=== PATIENT | female | born 1930 | race Caucasian/White ===

== ENCOUNTER 2018-03-23 17:18 | Observation (INO) | payer OTHER, MEDICARE ==
[2018-03-23 18:07] LABS: Protime INR 1.14
[2018-03-23 18:14] LABS: Absolute Lymphocytes (CBC) 1.7 K/uL (0.7-4.9); Absolute Monocytes 0.5 K/uL (0.1-1.3); Absolute Neutrophil 4.6 K/uL (1.8-8.0); Basophils % 0.7 % (0-1.3); Eosinophils % 2.4 % (0-4.4); Lymphocytes % 23.9 % (15.3-44.8); MCH 28.5 pg (27.0-35.0); MCV 87.9 fL (80-100); MPV 9.5 fL (7.6-11.3); Monocytes % 6.9 % (3.3-12.3); RBC Red Blood Cell Count 4.43 M/uL (3.86-4.86)
[2018-03-23 18:25] LABS: ALT/SGPT 12 U/L (12-78); AST/SGOT 14 U/L (15-37); Albumin 2.2 g/dL (3.4-5.0); Alkaline Phosphatase 73 U/L (45-117); BUN Blood Urea Nitrogen 9 mg/dL (7-18); Bicarbonate 33 mmol/L (21-32); Bilirubin Direct 0.2 mg/dL (0-0.2); Bilirubin Total 0.4 mg/dL (0.2-1.0); Glucose Level 95 mg/dL (74-106); Magnesium 1.6 mg/dL (1.8-2.4); NT PRO-BNP 3036 pg/mL (<450); Potassium 4.1 mmol/L (3.5-5.1); Protein, Total 5.9 g/dL (6.4-8.2); Sodium Level 143 mmol/L (136-145); Troponin (Emerg Dept Use Only) < 0.02 ng/mL (0.0-0.045)
--- NOTE | 2018-03-23 18:53 | ER ---
Nurse's Notes [facility] Name: Sheba Jones Age: 87 yrs Sex: Female : 1930 Arrival Date: 03/23/2018 Time: 17:25 Bed 4 Private MD: Diagnosis: CHF and bilateral pedal edema Presentation: 03/23 17:29 Presenting complaint: EMS states: Sent by [facility] to rule out DVT. shelter reports ss bilateral pedal edema for unknown period of time. Pt c/o pain to affected extremities, 11/12. Transition of care: patient was received from another setting of care (long-term care [facility]), [facility]. Onset of symptoms is unknown. Risk Assessment: Do you want to hurt yourself or someone else? Patient reports no desire to harm self or others. Initial Sepsis Screen: Does the patient meet any 2 criteria? No. Patient's initial sepsis screen is negative. Does the patient have a suspected source of infection? No. Patient's initial sepsis screen is negative. Care prior to arrival: None. 17:29 Method Of Arrival: EMS: [facility] 17:29 Acuity: MICHELLE 3 ss Historical: - Allergies: 17:32 ambien; ss 17:32 PENICILLINS; ss - Home Meds: 18:02 Vitamin D Oral 2000 unit daily [Active]; acetaminophen-codeine 300-30 mg Oral tab 1 tab tw2 three times a day [Active]; aspirin 81 mg Oral TbEC 1 tab once daily [Active]; Colace 100 mg Oral cap 1 cap 2 times per day [Active]; Cymbalta 30 mg Oral cpDR 1 cap once daily [Active]; Lasix 40 mg Oral tab 1 tab 2 times per day [Active]; lisinopril 5 mg Oral tab 1 tab once daily [Active]; metoprolol tartrate 25 mg Oral tab 1 tab 2 times per day [Active]; Neurontin 300 mg Oral cap 1 cap twice a day [Active]; nitroglycerin 0.4 mg SL subl 1 tab as needed [Active]; potassium chloride 20 mEq Oral tab 1 tab once daily [Active]; pravastatin 20 mg Oral tab 1 tab nightly [Active]; - PMHx: 17:32 CAD; CHF; CHRONIC KIDNEY DX; Hypertension; High Cholesterol; Dementia; neuropathy; ss osteoarthritis; UTI; weakness; - Immunization history:: Adult Immunizations up to date. - Social history:: Smoking status: Patient/guardian denies using tobacco. - Ebola Screening: : Patient denies exposure to infectious person Patient denies travel to an Ebola-affected area in the 21 days before illness onset. Screenin:58 Abuse screen: Denies threats or abuse. Nutritional screening: No deficits noted. tw2 Tuberculosis screening: No symptoms or risk factors identified. Fall Risk Secondary diagnosis (15 points) impaired mobility. Assessment: 17:54 General: Appears in no apparent distress. obese, Behavior is calm, cooperative, tw2 appropriate for age. Pain: Complains of pain in right leg and left leg. Neuro: Level of Consciousness is awake, alert, obeys commands, Oriented to person, place, situation. Cardiovascular: Denies chest pain, shortness of breath, Heart tones S1 S2 Capillary refill < 3 seconds Patient's skin is warm and dry. Cardiovascular: Edema is 2+ to left ankle, left foot, left toes, right ankle, right foot and right toes. Respiratory: Airway is patent Respiratory effort is even, unlabored, Respiratory pattern is regular, symmetrical, Breath sounds are clear bilaterally. GI: No signs and/or symptoms were reported involving the gastrointestinal system. Abdomen is round obese, Bowel sounds present X 4 quads. : No signs and/or symptoms were reported regarding the genitourinary system. EENT: No signs and/or symptoms were reported regarding the EENT system. Derm: Skin is fragile, is thin, Skin is dry. Musculoskeletal:. 19:00 Reassessment: Patient appears in no apparent distress at this time. No changes from tw2 previously documented assessment. Patient and/or family updated on plan of care and expected duration. Pain level reassessed. 19:15 General: Appears in no apparent distress. comfortable, Behavior is calm, cooperative, ao appropriate for age. Pain: Complains of pain in legs. Neuro: Level of Consciousness is awake, alert, obeys commands, Oriented to person, place, time, situation, Moves all extremities. Full function Speech is normal, Facial symmetry appears normal. Cardiovascular: Capillary refill < 3 seconds Patient's skin is warm and dry. Respiratory: Airway is patent Respiratory effort is even, unlabored, Respiratory pattern is regular, symmetrical, Breath sounds are clear bilaterally. GI: Abdomen is round obese. : No signs and/or symptoms were reported regarding the genitourinary system. EENT: No signs and/or symptoms were reported regarding the EENT system. Derm: Skin is fragile, is thin, Skin is dry. Musculoskeletal: Range of motion: limited in all extremities. 20:22 Reassessment: Patient appears in no apparent distress at this time. Patient and/or ao family updated on plan of care and expected duration. Pain level reassessed. Waiting on room assignment. 20:45 Reassessment: Report given to KYAW Calvin. patient to be taken to his room. ao Vital Signs: 17:32 BP 149 / 63; Pulse 72; Resp 19; Temp 97.6(TE); Pulse Ox 99% on R/A; Weight 74.84 kg; ss Height 5 ft. 10 in. (177.80 cm); Pain 6/10; 18:13 BP 159 / 90; Pulse 81; Resp 19; Pulse Ox 97% on R/A; tw2 19:31 BP 152 / 84; Pulse 92; Resp 12; Pulse Ox 100% on R/A; ao 20:22 BP 159 / 96; Pulse 78; Resp 12; Pulse Ox 96% ; ao 17:32 Body Mass Index 23.67 (74.84 kg, 177.80 cm) ss ED Course: 17:25 Patient arrived in ED. tw2 17:25 Roberto Allred MD is Attending Physician. kdr 17:25 Bed in low position. Call light in reach. Side rails up X2. signaling design engineer on. Pulse tw2 ox on. NIBP on. Warm blanket given. 17:26 Nata Post RN is Primary Nurse. tw2 17:31 Triage completed. ss 17:32 Arm band placed on right wrist. ss 17:51 Inserted saline lock: 20 gauge in left antecubital area, using aseptic technique. Blood tw2 collected. 18:18 X-ray completed. Portable x-ray completed in exam room. Patient tolerated procedure ml well. 18:21 XRAY Chest (1 view) In Process Unspecified. EDMS 18:51 Mona Sotomayor MD is Hospitalizing Provider. kdr 19:02 Report given to KYAW Clemons. tw2 21:10 No provider procedures requiring assistance completed. Patient admitted, IV remains in ao place. Administered Medications: No medications were administered Outcome: 18:52 Decision to Hospitalize by Provider. kdr 21:10 Admitted to Tele accompanied by tech, room 409, with chart, Report called to KYAW Calvin 21:10 Condition: stable 21:10 Instructed on the need for admit. 21:13 Patient left the ED. aa1 Signatures: Dispatcher [employer] EDMS Iqra Villarreal, RN RN aa1 Roberto Allred MD MD kdr Lopez, Melissa ml Smirch, Shelby, RN RN ss Ortiz, Alex, RN RN ao Wise, Tara RN RN tw2
--- NOTE | 2018-03-23 18:53 | EDPHYS ---
Physician Documentation [facility] Name: Sheba Jones Age: 87 yrs Sex: Female : 1930 Arrival Date: 03/23/2018 Time: 17:25 Bed 4 Private MD: ED Physician Roberto Allred HPI: 03/23 18:54 This 87 yrs old Female presents to ER via EMS with complaints of Pedal Edema. kdr 18:54 The patient presents with pain, that is acute, swelling, tenderness. The complaints kdr affect the posterior aspect of left knee and left calf, posterior aspect of right knee and right calf. Context: The problem was sustained at home, at a care home or assisted living facility, resulted from an unknown cause, The patient is bed ridden. Onset: The symptoms/episode began/occurred gradually, The patient has had chronic pain and swelling which has been getting worse.. Modifying factors: The symptoms are alleviated by the symptoms are aggravated by nothing. 03/24 06:07 Associated signs and symptoms: The patient has no apparent associated signs or kdr symptoms. Treatment prior to arrival includes: no previous treatment. Severity of symptoms: At their worst the symptoms were moderate, in the emergency department the symptoms are unchanged. Swelling is chronic but worse and pain has worsened. It is unknown whether or not the patient has recently seen a physician. Historical: - Allergies: 03/23 17:32 ambien; ss 17:32 PENICILLINS; ss - Home Meds: 18:02 Vitamin D Oral 2000 unit daily [Active]; acetaminophen-codeine 300-30 mg Oral tab 1 tab tw2 three times a day [Active]; aspirin 81 mg Oral TbEC 1 tab once daily [Active]; Colace 100 mg Oral cap 1 cap 2 times per day [Active]; Cymbalta 30 mg Oral cpDR 1 cap once daily [Active]; Lasix 40 mg Oral tab 1 tab 2 times per day [Active]; lisinopril 5 mg Oral tab 1 tab once daily [Active]; metoprolol tartrate 25 mg Oral tab 1 tab 2 times per day [Active]; Neurontin 300 mg Oral cap 1 cap twice a day [Active]; nitroglycerin 0.4 mg SL subl 1 tab as needed [Active]; potassium chloride 20 mEq Oral tab 1 tab once daily [Active]; pravastatin 20 mg Oral tab 1 tab nightly [Active]; - PMHx: 17:32 CAD; CHF; CHRONIC KIDNEY DX; Hypertension; High Cholesterol; Dementia; neuropathy; ss osteoarthritis; UTI; weakness; - Immunization history:: Adult Immunizations up to date. - Social history:: Smoking status: Patient/guardian denies using tobacco. - Ebola Screening: : Patient denies exposure to infectious person Patient denies travel to an Ebola-affected area in the 21 days before illness onset. ROS: 03/24 06:07 Constitutional: Negative for fever, chills, and weight loss, Eyes: Negative for injury, kdr pain, redness, and discharge, Neck: Negative for injury, pain, and swelling, Cardiovascular: Negative for chest pain, palpitations, and edema, Respiratory: Negative for shortness of breath, cough, wheezing, and pleuritic chest pain, Abdomen/GI: Negative for abdominal pain, nausea, vomiting, diarrhea, and constipation, Back: Negative for injury and pain, : Negative for injury, bleeding, discharge, and swelling, Skin: Negative for injury, rash, and discoloration, Neuro: Negative for headache, weakness, numbness, tingling, and seizure activity. Psych: Negative for depression, anxiety, suicide ideation, homicidal ideation, and hallucinations, Allergy/Immunology: Negative for hives, rash, and allergies, Endocrine: Negative for neck swelling, polydipsia, polyuria, polyphagia, and marked weight changes, Hematologic/Lymphatic: Negative for swollen nodes, abnormal bleeding, and unusual bruising. MS/extremity: Positive for decreased range of motion, pain, swelling, tenderness, of the posterior aspect of right knee, right calf, right Achilles, posterior aspect of left knee, left calf and left Achilles. Exam: 06:07 Constitutional: This is a well developed, well nourished patient who is awake, alert, kdr and in no acute distress. Head/Face: Normocephalic, atraumatic. Eyes: Pupils equal round and reactive to light, extra-ocular motions intact. Lids and lashes normal. Conjunctiva and sclera are non-icteric and not injected. Cornea within normal limits. Periorbital areas with no swelling, redness, or edema. Neck: Trachea midline, no thyromegaly or masses palpated, and no cervical lymphadenopathy. Supple, full range of motion without nuchal rigidity, or vertebral point tenderness. No Meningismus. Chest/axilla: Normal chest wall appearance and motion. Nontender with no deformity. No lesions are appreciated. Cardiovascular: Regular rate and rhythm with a normal S1 and S2. No gallops, murmurs, or rubs. Normal PMI, no JVD. No pulse deficits. Back: No spinal tenderness. No costovertebral tenderness. Full range of motion. Skin: Warm, dry with normal turgor. Normal color with no rashes, no lesions, and no evidence of cellulitis. Neuro: Awake and alert, GCS 15, oriented to person, place, time, and situation. Cranial nerves II-XII grossly intact. Motor strength 4+/5 in upper extremities. Lower extremities contracted Sensory grossly intact though diminished in the lower extremities Psych: Awake, alert, with orientation to person, place and time. Behavior, mood, and affect are within normal limits. 06:07 Respiratory: the patient does not display signs of respiratory distress, Respirations: normal, Breath sounds: rales, that are mild, are scattered, are located in both bases. 06:07 Abdomen/GI: Inspection: obese scar(s), are noted in the suprapubic area, right upper quadrant, left upper quadrant, right lower quadrant and left lower quadrant, Bowel sounds: active, all quadrants, Palpation: soft, mild abdominal tenderness, in all quadrants, mass, Large hernia in mid abdomen, rebound tenderness, is not appreciated, voluntary guarding, is not appreciated, involuntary guarding, is not appreciated. Vital Signs: 03/23 17:32 BP 149 / 63; Pulse 72; Resp 19; Temp 97.6(TE); Pulse Ox 99% on R/A; Weight 74.84 kg; ss Height 5 ft. 10 in. (177.80 cm); Pain 6/10; 18:13 BP 159 / 90; Pulse 81; Resp 19; Pulse Ox 97% on R/A; tw2 19:31 BP 152 / 84; Pulse 92; Resp 12; Pulse Ox 100% on R/A; ao 20:22 BP 159 / 96; Pulse 78; Resp 12; Pulse Ox 96% ; ao 17:32 Body Mass Index 23.67 (74.84 kg, 177.80 cm) MDM: 18:52 Patient medically screened. kdr 03/24 06:07 Data reviewed: vital signs, nurses notes, lab test result(s), radiologic studies. kdr Counseling: I had a detailed discussion with the patient and/or guardian regarding: the historical points, exam findings, and any diagnostic results supporting the discharge/admit diagnosis, lab results, radiology results, the need for further work-up and treatment in the hospital. 03/23 17:36 Order name: Basic Metabolic Panel; Complete Time: 18:26 kdr 03/23 17:36 Order name: CBC with Diff; Complete Time: 18:26 kdr 03/23 17:36 Order name: LFT's; Complete Time: 18:26 kdr 03/23 17:36 Order name: Magnesium; Complete Time: 18:26 kdr 03/23 17:36 Order name: NT PRO-BNP; Complete Time: 18:26 kdr 03/23 17:36 Order name: PT-INR; Complete Time: 18:48 kdr 03/23 17:36 Order name: Troponin (emerg Dept Use Only); Complete Time: 18:26 kdr 03/23 17:36 Order name: XRAY Chest (1 view) kdr 03/23 17:36 Order name: Cardiac monitoring; Complete Time: 17:41 kdr 03/23 17:36 Order name: IV Saline Lock; Complete Time: 17:51 kdr 03/23 17:36 Order name: Labs collected and sent; Complete Time: 17:51 kdr 03/23 17:36 Order name: O2 Per Protocol; Complete Time: 18:04 kdr 03/23 17:36 Order name: US Extremity Venous W Compression Eliazar kdr 03/23 19:41 Order name: US EDMS 03/23 17:36 Order name: O2 Sat Monitoring; Complete Time: 18:05 kdr Administered Medications: No medications were administered Disposition: 03/23/18 18:52 Hospitalization ordered by Mona Sotomayor for Observation. Preliminary diagnosis is CHF and bilateral pedal edema. - Bed requested for Telemetry/MedSurg (observation). - Status is Observation. aa1 - Condition is Fair. - Problem is an acute exacerbation. - Symptoms are unchanged. UTI on Admission? No Signatures: Dispatcher [employer] EDMS Radha Ramirez RN RN kl Kern, Alissa, RN RN aa1 Roberto Allred MD MD [facility] Montserrat Wade RN RN Nata Post RN RN tw2 Corrections: (The following items were deleted from the chart) 10/19 20:24 18:52 Hospitalization Ordered by Mona Sotomayor MD for Observation. Preliminary kl diagnosis is CHF and bilateral pedal edema. Bed requested for Telemetry/MedSurg (observation). Status is Observation. Condition is Fair. Problem is an acute exacerbation. Symptoms are unchanged. UTI on Admission? No. kdr 21:13 20:24 03/23/2018 18:52 Hospitalization Ordered by Mona Sotomayor MD for Observation. aa1 Preliminary diagnosis is CHF and bilateral pedal edema. Bed requested for Telemetry/MedSurg (observation). Status is Observation. Condition is Fair. Problem is an acute exacerbation. Symptoms are unchanged. UTI on Admission? No. kl
--- NOTE | 2018-03-23 19:18 | RAD REPORT ---
EXAM DESCRIPTION: RAD - Chest Single View - 03/23/2018 6:21 pm CLINICAL HISTORY: Shortness of breath, lower extremity edema COMPARISON: June 20 TECHNIQUE: AP portable chest image was obtained 1813 hours . FINDINGS: Lung volumes are low compared to the prior study. No peripheral mass or consolidation. Vas culature is prominent. Cardiomegaly is present increased slightly from comparison. Trachea is midline . Interstitial markings are prominent. No measurable pleural effusion and no pneumothorax. No acute b maría abnormality seen. No acute aortic findings suspected. IMPRESSION: Mild CHF/ volume overload. No peripheral mass or consolidation.
--- NOTE | 2018-03-23 19:41 | RAD REPORT ---
EXAM DESCRIPTION: US - Extrem Venous W Compress Eliazar - 03/23/2018 7:33 pm CLINICAL HISTORY: Leg pain and swelling COMPARISON: None. TECHNIQUE: Real-time sonographic evaluation of the bilateral lower extremity common femoral, superfi cial femoral, popliteal and posterior tibial veins was performed. FINDINGS: Normal compressibility, flow augmentation, phasic flow and spontaneous flow are identified in the left and right lower extremity common femoral, superficial femoral, popliteal and posterior t ibial veins. No intraluminal filling defects seen. IMPRESSION: No DVT in either lower extremity.
--- NOTE | 2018-03-23 20:04 | P.HP ---
Certification for Inpatient Patient admitted to: Observation With expected LOS: <2 Midnights Practitioner: I am a practitioner with admitting privileges, knowledge of patient current condition, hospital course, and medical plan of care. Services: Services provided to patient in accordance with Admission requirements found in Title 42 Section 412.3 of the Code of Federal Regulations Patient History Date of Service: 03/23/18 Reason for admission: CHF exacerbation History of Present Illness: Ms Jones is an 87-year-old woman with history of hypertension, CHF with last echo done 2015 reporting EF 46%, resident of a local [facility]. She was transferred to ER for evaluation because progressive lower extremity edema. There is no history of shortness of breath or recent chest pain. Lab work remarkable for elevated proBNP 3036. Chest-x-ray and shows bilateral infiltrate consistent with mild CHF. Allergies zolpidem tartrate [From Ambien] Allergy (Mild, Verified 06/21/17 03:38) violent Penicillins Allergy (Verified 06/21/17 03:38) unknown Home medications list reviewed: Yes Home Medications: Potassium Oral Tab [Klor-Con 10 mEq Tab*] 20 meq PO DAILY 12/06/12 Gabapentin [Neurontin*] 300 mg PO BID 03/17/13 Metoprolol Tartrate [Lopressor*] 25 mg PO BID #60 tab 04/08/13 Acetaminophen with Codeine [Tylenol with Codeine #3 Tablet] 1 each PO TID Aspirin Chewable [Aspirin Chewable*] 81 mg PO DAILY 08/31/15 Cholecalciferol (Vitamin D3) [Vitamin D3] 2,000 unit PO DAILY 04/23/17 Docusate [Colace Cap*] 100 mg PO BID 04/23/17 Duloxetine [Cymbalta *] 60 mg PO DAILY 04/23/17 Furosemide [Lasix*] 40 mg PO BIDL 04/23/17 Lisinopril [Prinivil*] 5 mg PO DAILY 04/23/17 Magnesium Oxide [Mag 0X*] 400 mg PO BID #60 tab 04/25/17 cefaCLOR [Cefaclor] 500 mg PO DAILY #7 capsule 06/21/17 metroNIDAZOLE [Flagyl] 500 mg PO Q8H #21 tablet 06/22/17 - Past Medical/Surgical History Diabetic: No -: HTN -: CHF -: CKD -: Osteoarthritis -: Pneumonia -: A-fib -: Dementia -: varicous veins -: Hysterectomy -: Cholecystectomy -: Appendectomy -: bilateral cataract removal x 2 - Family History Family History: Reviewed- Non-Contributory - Social History Alcohol use: No CD- Drugs: No Caffeine use: No Place of Residence: Jail Review of Systems 10-point ROS is otherwise unremarkable Physical Examination - Physical Exam General: Alert, In no apparent distress, Demented HEENT: Atraumatic, PERRLA, Mucous membr. moist/pink, EOMI, Sclerae nonicteric Neck: Supple, 2+ carotid pulse no bruit, No LAD, Without JVD or thyroid abnormality Respiratory: Normal air movement, Crackles/rales (Bibasilar rales) Cardiovascular: Normal S1 S2, No gallops Gastrointestinal: Normal bowel sounds, No tenderness Musculoskeletal: No tenderness Integumentary: No rashes Neurological: Normal strength at 5/5 x4 extr, Normal tone, Normal affect, Abnormal speech (Slower speech (patient has poor dentition)) Lymphatics: No axilla or inguinal lymphadenopathy - Studies Laboratory Data (last 24 hrs) 03/23/18 17:45: PT 13.5 H, INR 1.14 03/23/18 17:45: WBC 7.0, Hgb 12.6, Hct 39.0, Plt Count 262 03/23/18 17:45: Sodium 143, Potassium 4.1, BUN 9, Creatinine 0.60, Glucose 95, Magnesium 1.6 L, Total Bilirubin 0.4, AST 14 L, ALT 12, Alkaline Phosphatase 73 Assessment and Plan - Problems (Diagnosis) (1) Acute on chronic diastolic CHF (congestive heart failure) Current Visit: Yes Status: Acute (2) Dementia Onset Date: 04/24/17 Current Visit: No Status: Acute Qualifiers: Dementia type: unspecified type Dementia behavioral disturbance: without behavioral disturbance Qualified Code(s): F03.90 - Unspecified dementia without behavioral disturbance (3) Hypertension Onset Date: 04/24/17 Current Visit: No Status: Chronic Qualifiers: Hypertension type: essential hypertension - Plan The patient will be admitted to the hospital due to acute on chronic diastolic CHF, will order a new echocardiogram to evaluate LV function since the last time 2 years ago her EF was borderline low. Will order IV diuretics with close body fluid monitor, consult cardiology team for evaluation recommendation. EKG pending. - Advance Directives Does patient have a Living Will: No Does patient have a Durable POA for Healthcare: No - Code Status/Comfort Care Code Status Assessed: Yes Code Status: Full Code
[2018-03-23] MEDS ORDERED: ACETAMINOPHEN 500 MG TAB PO PRN (21:33)
[2018-03-23] MEDS ORDERED: ONDANSETRON 4 MG/2 ML VIAL IV PRN (21:33)
[2018-03-23 21:43] VITALS: BMI 25.4
[2018-03-23] MEDS ORDERED: MAGNESIUM SULFATE 1 gm IVPB 1 GM/100 ML BAG IV ONE (23:01)
[2018-03-24 06:30] LABS: Absolute Lymphocytes (CBC) 1.5 K/uL (0.7-4.9); Absolute Monocytes 0.5 K/uL (0.1-1.3); Absolute Neutrophil 4.2 K/uL (1.8-8.0); Basophils % 0.7 % (0-1.3); Hematocrit 39.5 % (36.0-45.0); Lymphocytes % 23.2 % (15.3-44.8); MCH 28.6 pg (27.0-35.0); MCV 87.9 fL (80-100); MPV 9.7 fL (7.6-11.3); Monocytes % 7.4 % (3.3-12.3); RBC Red Blood Cell Count 4.49 M/uL (3.86-4.86)
[2018-03-24 06:49] LABS: BUN Blood Urea Nitrogen 9 mg/dL (7-18); Bicarbonate 32 mmol/L (21-32); Glucose Level 88 mg/dL (74-106); Magnesium 1.9 mg/dL (1.8-2.4); Sodium Level 141 mmol/L (136-145)
[2018-03-24] MEDS: FUROSEMIDE 40 MG/4 ML VIAL IV SCH ×2 (10:27→18:16)
[2018-03-24] MEDS: ENOXAPARIN 40 MG/0.4 ML SQ SCH (10:27)
[2018-03-24] MEDS: LISINOPRIL 5 MG TAB PO SCH (12:29)
[2018-03-24] MEDS: DULOXETINE 30 MG CAP PO SCH (12:29)
[2018-03-24] MEDS: POTASSIUM CL SA 10 MEQ TAB PO SCH (12:29)
[2018-03-24] MEDS: MEMANTINE HCL 10 MG TABLET PO SCH ×2 (12:30→20:58)
[2018-03-24] MEDS: METOPROLOL TAR 25 MG TAB PO SCH ×2 (12:31→20:58)
[2018-03-24] MEDS: DOCUSATE NA 100 MG CAP PO SCH ×2 (12:31→21:00)
[2018-03-24] MEDS: GABAPENTIN 300 MG CAP PO SCH ×2 (12:31→21:00)
[2018-03-24] MEDS: CODEINE 30MG/APAP 300MG TAB PO SCH ×2 (12:32→20:59)
[2018-03-24] MEDS: ASPIRIN 81 MG CHEWABLE TABLET PO SCH (12:32)
--- NOTE | 2018-03-24 16:28 | PN ---
Date of Progress Note: 03/24/2018 History: The patient seen and examined. Chart reviewed and case discussed with RN. The patient states her shortness of breath somewhat improved. However , lower extremity swelling still remained. Review of Systems: Negative except as above. Medications: List reviewed. Code Status: Full. Physical Examination: Vital Signs: Temperature 97.1, heart rate 76, blood pressure 140/92, respirations 20, O2 95% on room air. General: Awake, alert, oriented x3. Elderly female, in mild distress. CV: S1, S2. Regular rate and rhythm. Peripheral pulses weak bilaterally. Respiratory: Some diminished breath sounds. No wheezing or stridor. Gastrointestinal: Abdomen is soft, nontender, nondistended. Positive bowel sounds. Extremities: No clubbing, cyanosis. Bilateral lower extremity edema. Neurologic: Nonfocal. Laboratory Data: Sodium 141, potassium 4, chloride 103, CO2 32, BUN 9, creatinine 0.6, glucose 88, calcium 8.6, magnesium 1.9. WBC 6.3, H and H 12.8, 39.5, platelets 252, neutrophils 65%. Venous Doppler study shows no DVT in either lower extremity. Chest x-ray, personally reviewed, shows mild CHF, volume overload. Assessment And Plan: An 87-year-old female with: 1. Acute on chronic diastolic heart failure. Unable to obtain echocardiogram currently. We will continue with congestive heart failure guidelines with beta- gabino, MO inhibitor. Continue diuretics with Lasix IV. Facility Technician been consulted and we will continue with strict I's and O's. Monitor daily weights. Continue fluid restriction. 2. Alzheimer's dementia without behavioral disturbance, early onset. 3. Essential hypertension, stable. 4. History of paroxysmal atrial fibrillation, on aspirin. 5. Generalized osteoarthritis, stable. 6. Severe protein-calorie malnutrition. Albumin is 2.2. Plan: Continue to monitor fluid balance. Follow up with Cardiology recommendations. Likely discharge in the next 24 hours if continues to improve. SA/MODL Voice ID: [id number] Report ID: [id number]
[2018-03-24] MEDS ORDERED: ATORVASTATIN 10 MG TAB PO SCH (21:00)
[2018-03-24] MEDS ORDERED: TRAZODONE 50 MG TABLET PO SCH (21:00)
[2018-03-24] MEDS ORDERED: DONEPEZIL HCL 5 MG TAB PO SCH (21:00)
[2018-03-25 06:46] LABS: Absolute Lymphocytes (CBC) 1.6 K/uL (0.7-4.9); Absolute Monocytes 0.6 K/uL (0.1-1.3); Absolute Neutrophil 4.6 K/uL (1.8-8.0); Basophils % 0.5 % (0-1.3); Eosinophils % 1.8 % (0-4.4); Hematocrit 43.8 % (36.0-45.0); Lymphocytes % 23.6 % (15.3-44.8); MCH 28.6 pg (27.0-35.0); MCV 86.6 fL (80-100); MPV 10.2 fL (7.6-11.3); Monocytes % 8.2 % (3.3-12.3); RBC Red Blood Cell Count 5.06 M/uL (3.86-4.86)
[2018-03-25 06:57] LABS: Albumin 2.6 g/dL (3.4-5.0); Bilirubin Total 0.7 mg/dL (0.2-1.0); Potassium 3.5 mmol/L (3.5-5.1); Protein, Total 6.7 g/dL (6.4-8.2)
[2018-03-25] MEDS ORDERED: POTASSIUM CL SA 10 MEQ TAB PO ONE (07:38)
[2018-03-25] MEDS: ENOXAPARIN 40 MG/0.4 ML SQ SCH (08:46)
[2018-03-25] MEDS: MEMANTINE HCL 10 MG TABLET PO SCH (08:47)
[2018-03-25] MEDS: POTASSIUM CL SA 10 MEQ TAB PO SCH (08:47)
[2018-03-25] MEDS: LISINOPRIL 5 MG TAB PO SCH (08:48)
[2018-03-25] MEDS: CODEINE 30MG/APAP 300MG TAB PO SCH ×2 (08:48→14:00)
[2018-03-25] MEDS: DULOXETINE 30 MG CAP PO SCH (08:49)
[2018-03-25] MEDS: GABAPENTIN 300 MG CAP PO SCH (08:49)
[2018-03-25] MEDS: DOCUSATE NA 100 MG CAP PO SCH (08:49)
[2018-03-25] MEDS: FUROSEMIDE 40 MG/4 ML VIAL IV SCH ×2 (08:50→17:00)
[2018-03-25] MEDS: ASPIRIN 81 MG CHEWABLE TABLET PO SCH (08:50)
[2018-03-25] MEDS: METOPROLOL TAR 25 MG TAB PO SCH (08:50)
[2018-03-25] MEDS ORDERED: LORATADINE 10 MG TAB PO SCH (09:00)
[2018-03-25 16:44] VITALS: BP 122/56; TEMP 97; O2SAT 94
--- NOTE | 2018-03-26 01:39 | DS ---
Date of Discharge: 03/25/2018 Consultants: Cardiology, Dr. Murphy. Admitting Diagnoses: 1.Acute on chronic diastolic heart failure. 2.Alzheimer's dementia without behavioral disturbance. 3.Essential hypertension. Discharge Diagnoses: 1.Acute on chronic diastolic heart failure. 2.Alzheimer's dementia without behavioral disturbance. 3.Essential hypertension. 4.History of paroxysmal atrial fibrillation, on aspirin. 5.Generalized osteoarthritis. 6.Severe protein-calorie malnutrition. Hospital Course: The patient is an 87-year-old female from [facility], comes in with sh ortness of breath, lower extremity edema, found to have CHF exacerbation. Her last ejection fraction was 46%. Her imaging studies did show bilateral infiltrates consistent with mild CHF and an elevate d BNP level. The patient was started on IV diuresis and CHF guidelines. Echocardiogram was unavaila ble over the weekend. Cardiology was consulted. The patient did well and diuresed well. Her shortn ess of breath improved. She did not have any signs of sepsis or infection. The patient otherwise di d well. Her condition improved. She did have an ultrasonogram, which ruled out DVT. The patient wa s then doing well and was transferred back to nursing facility in a stable condition. Activity: Fall precautions. Diet: Low-sodium, fluid-restricted diet. Followup: Follow up with primary care physician in 2-3 days. Follow up with slinger [facility], Dr. Muriel oleary in 2 weeks. Return to ER for worsening condition. Medications: As per medication reconciliation list. Physical Examination: General: Awake, alert, oriented x2. Not any acute distress. Elderly female. CV: S1, S2. Irregularly irregular. Peripheral pulses are weak. Respiratory: Moving air well bilaterally. No wheezing. No stridor. Gastrointestinal: Abdomen is soft, nontender, nondistended. Positive bowel sounds. Extremities: No clubbing, no cyanosis, no edema. SA/MODL Voice ID: [id number] Report ID: [id number]
--- NOTE | 2018-03-26 03:52 | PN ---
Date of Progress Note: 03/24/2018 Subjective: Ms. Jones is an 87-year-old woman, bedridden, history of chronic systolic congestive heart failure. She came in with exacerbation yesterday, late in the evening was seen. She was being given Lasix IV in addition to her home medication. Her troponin remained negative. She had a venou s Doppler because of edema that was negative. Chest x-ray that is pending for today. Her mag was co rrected, it was 1.6 yesterday. Her edema has improved today. She has no rales. No complaint. I wi ll feel comfortable with Ms. Jones going home whenever it is okay with Dr. Buchanan. Adding a low dose beta-gabino may be helpful with her congestive heart failure. CHANELL/MAXINE Voice ID: [id number] Report ID: [id number]
--- NOTE | 2018-03-26 04:28 | CON ---
Date of Consultation: 03/23/2018 Reason For Consultation: Congestive heart failure. History Of Present Illness: Ms. Jones is an 87-year-old woman, bedridden, history of dementia, CH F, CAD, hypertension, chronic renal insufficiency, dyslipidemia, atrial fibrillation, and neuropathy, admitted with classic congestive heart failure symptoms. Chest x-ray showed congestive heart failur e. BNP was 3036. Venous Doppler was negative. She had a magnesium of 1.6. Otherwise, her laborato ry evaluation was fairly unremarkable. She had orthopnea, pedal edema, and shortness of breath. She had some sharp chest pain. Denies nausea, vomiting, diaphoresis, palpitations, or syncope. Denied fever or chills. Allergies: TO AMBIEN AND PENICILLIN. Review of Systems: Negative. Social History: Negative. Family History: Negative. Medications: Include aspirin, Aricept, Cymbalta, magnesium, Lasix, Prinivil, Neurontin, metoprolol, potassium, and Pravachol. Physical Examination: Vital Signs: Stable. She is afebrile. HEENT: Negative. Neck: Supple. No bruit or JVD or lymphadenopathy. Chest: Revealed rales bilaterally. Cardiac: Revealed a regular rhythm and rate with S4 gallops. No murmurs or rubs. Abdomen: Benign. Extremities: Revealed no clubbing or cyanosis. She had 1+ edema. Diagnostic Data: Stated earlier. She had a normal carotid in 2012. Ejection fraction was 46% in . Impression And Plan: 1.Acute exacerbation of chronic systolic congestive heart failure, ejection fraction of 46% in 2016. She is diuresing well. An echocardiogram is pending for next week. I agree with the present regim en. 2.Dementia. 3.History of coronary artery disease. 4.History of chronic renal insufficiency that is mild. 5.Hypertension. 6.Dyslipidemia. 7.Atrial fibrillation that had resolved. 8.Neuropathy. I will continue current regimen. Check an echo. Consider use of low-dose beta-gabino. CHANELL/MAXINE Voice ID: [id number] Report ID: [id number]
== END 2018-03-25 19:18 ==
LOC: ER 17:18 → ERHOLD 18:52 → 4TH 20:29
PROVIDERS: ADMIT Internal Medicine; ATTEND Internal Medicine
DX: I11.0 Hypertensive heart disease with heart failure (principal); I50.33 Acute on chronic diastolic (congestive) heart failure; G30.9 Alzheimer's disease, unspecified; F02.80 Dementia in other diseases classified elsewhere, unspecified severity, without behavioral disturbance, psychotic disturbance, mood disturbance, and anxiety; I25.10 Atherosclerotic heart disease of native coronary artery without angina pectoris; M15.9 Polyosteoarthritis, unspecified; E43 Unspecified severe protein-calorie malnutrition; Z68.25 Body mass index [BMI] 25.0-25.9, adult; Z79.82 Long term (current) use of aspirin; Z74.01 Bed confinement status; Z88.0 Allergy status to penicillin
CPT/HCPCS: 36415 ×2; 71045; 80048 ×2; 80053; 80076; 83735 ×2; 83880; 84484; 85025 ×3; 85610; 93970; 94760 ×3; 99285; G0378 ×2; J1650 ×2; J3475